=== PATIENT | male | born 1955 | race Caucasian/White ===

== ENCOUNTER 2020-10-03 09:58 | Day surgery (SDC) | payer OTHER ==
[~2020-10-03] VITALS: Ht 177.8 cm; Wt 93.6 kg
[~2020-10-03 09:58] MED LIST: AVINZA60 MG PO; AVODART0.5 MG PO; CELEBREX200 MG PO; CYMBALTA60 MG PO; DONEPEZIL HCL10 MG PO; FLOMAX0.4 MG PO; JALYN 0.5-0.41 EACH PO; LINZESS145 MCG PO; METHOCARBAMOL750 MG PO; NAMENDA10 MG PO; NEURONTIN600 MG PO; OMEPRAZOLE20 M1 PO; OXYCODONE HCL10 MG PO; OXYCONTIN60 MG PO; RESTORIL15 MG PO; ROXICODONE30 MG PO; SOMA350 MG PO; UBRELVY PO; ULORIC80 MG PO; VALIUM10 MG PO; WELLBUTRIN SR150 MG PO; [UNRECOGNIZED DRUG - OTHER] PO
[2020-10-03 12:00] VITALS: Ht 177.8 cm; Wt 93.6 kg
--- NOTE | 2020-10-03 19:02 | NUR ---
1800 IV REMOVED AND INSTRUCTIONS GIVEN. NO SOB PT STATED HE IS FEELING BETTER, MORE AWAKE AND ASSISTED PT WITH GETTING DRESSED.
--- NOTE | 2020-10-04 05:59 | OP ---
PATIENT NAME: BRYNN LUNDBERG MEDICAL RECORD: [id number] :55 LOCATION:[facility] ADMISSION DATE: SURGEON: JAIRO HEATON DO DATE OF OPERATION: 10/03/2020 PROCEDURE PERFORMED: Left shoulder arthroscopy with biceps tenodesis, labral debridement, subacromial decompression, distal clavicle excision. PREOPERATIVE DIAGNOSES: Left shoulder superior labrum anterior and posterior tear, subacromial impingement, AC joint arthritis. POSTOPERATIVE DIAGNOSES: Left shoulder superior labrum anterior and posterior tear, subacromial impingement, AC joint arthritis. INDICATIONS: Mr. Lundberg is a 64-year-old male who has had left shoulder pain for quite some time and had an MRI showing the above findings. He is tired of dealing with pain and wants something done surgically. He was aware of the risks of this including infection, bleeding, damage to nerves and vessels, need for further surgery, adhesive capsulitis of the shoulder, continued pain, sagging biceps, failure of implants and he has signed the consent. SURGEON: Jairo Heaton DO. DESCRIPTION OF PROCEDURE: The patient received block by Anesthesia in the preoperative area, taken to the operative suite, laid in the right lateral decubitus position with the left shoulder up, then sedated and LMA was placed. The left upper extremity was then prepped and draped in sterile fashion. He received 900 mg clindamycin. A timeout was performed. Everyone was in agreement with the correct side, site, patient and procedure. I then began by making with an 18-gauge spinal needle entering 60 mL normal saline into the shoulder joint. I then used 11 blade scalpel and established a posterior portal. Trocar was then entered into the shoulder joint. We then established an anterior portal with an 18-gauge spinal needle and 11-blade scalpel. Trocar was then brought in. I saw a large SLAP tear in the labrum and tears in the supraspinatus, infraspinatus and subscapularis. I then brought in a burner, did a biceps tenotomy and labral debridement. I went to the subacromial space, established a lateral portal with an 18-gauge spinal needle and 11 blade scalpel, brought in a shaver and shaved out the bursa, did a subacromial decompression and acromioplasty through the anterior portal, a distal clavicle excision, opened up the AC joint to approximately 7 mm. I then removed the scope and the instruments and went to the anterior humerus, made an incision. We carefully dissected down to the long head of biceps tendon, retrieved it out and put a unicortical hole with a 2.9 JuggerLoc loop stitch in. I cinched down the long head of biceps tendon after looping it through the loop and loop extension down to the humerus, cut the excess suture with the loop and sutured back through the tendon with free needle placed from the loop suture. I then tied it down and cut the excess tendon and suture, then irrigated. Amisha Joshi, certified logistics assistant, then closed the open site with 2-0 Vicryl in inverted interrupted fashion, 4-0 Monocryl on the skin, 4-0 Monocryl in inverted interrupted fashion on the other portal sites, then placed Dermabond glue on all of them. He was then dressed with Telfa and Tegaderm, awakened, put in a sling and taken to recovery in stable condition. BLOOD LOSS: Minimal. OPERATIVE REPORT [id number] BRYNN LUNDBERG COMPLICATIONS: None. TRANSINT:[id number] Voice Confirmation ID: [id number] DOCUMENT ID: [id number] JAIRO HEATON DO at 0559 CC: [id number] DICTATION DATE: 10/03/20 153 BRAZE OPERATOR: 10/04/20 0213 [facility] 10/03/[address] [facility] [address] [place] [address]
== END 2020-10-03 18:15 | disposition home or self-care (01) ==
LOC: D.OPS 09:58
PROVIDERS: ATTEND Orthopaedic Surgery
DX: M13.812 Other specified arthritis, left shoulder (principal); S43.432A Superior glenoid labrum lesion of left shoulder, initial encounter; M75.42 Impingement syndrome of left shoulder; X58.XXXA Exposure to other specified factors, initial encounter; M25.512 Pain in left shoulder